=== PATIENT | female | born 1950 | race Native Hawaiian/Other Pacific Islander ===

== ENCOUNTER 2018-08-03 19:18 | Outpatient (CLI) | payer OTHER | END 2018-08-03 19:34 | disposition short-term general hospital (02) | LOC: AMB 19:18 | DX: M54.89 Other dorsalgia (principal) | CPT/HCPCS: A0425; A0427 ==

== ENCOUNTER 2018-08-03 19:47 | Emergency (ER) | payer OTHER ==
[~2018-08-03] VITALS: Ht 162.6 cm; Wt 74.8 kg
[2018-08-03 21:30] LABS: POTASSIUM 3.4 mmol/L (3.6-5.2)
[2018-08-03 22:57] VITALS: BP 138/62; TEMP 98.7
== END 2018-08-03 22:58 | disposition home or self-care (01) ==
LOC: ED 19:47
PROVIDERS: Internal Medicine
DX: R10.84 Generalized abdominal pain (principal); N20.0 Calculus of kidney; M25.50 Pain in unspecified joint; C50.919 Malignant neoplasm of unspecified site of unspecified female breast
CPT/HCPCS: 36415; 80053; 81000; 96375; 96376; 99284; J1885; J2270

== ENCOUNTER 2019-10-03 20:39 | Emergency (ER) | payer OTHER ==
[~2019-10-03] VITALS: Ht 162.6 cm; Wt 65.8 kg
[2019-10-03 21:24] LABS: PLATELET COUNT 236 K/uL (152-353)
[2019-10-03 21:48] LABS: POTASSIUM 3.5 mmol/L (3.6-5.2)
[2019-10-03 23:35] VITALS: BP 182/81; TEMP 99.2
== END 2019-10-03 23:35 | disposition home or self-care (01) ==
LOC: ED 20:39
PROVIDERS: Hospitalist
DX: R10.84 Generalized abdominal pain (principal); K59.09 Other constipation; N39.0 Urinary tract infection, site not specified; Z90.11 Acquired absence of right breast and nipple
CPT/HCPCS: 80053; 81000; 82150; 83690; 85027; 96360; 96365; 96375; 99284; J0696; J1885; J2405